=== PATIENT | female | born 1990 | race Caucasian/White ===

== ENCOUNTER 2017-08-05 01:38 | Outpatient (CLI) | payer BC ==
[~2017-08-05] VITALS: Ht 154.9 cm; Wt 98.7 kg
[2017-08-05 01:58] VITALS: BP 131/68
[2017-08-05 01:59] LABS: BILIRUBIN,URINE NEGATIVE (NEGATIVE); KETONES,URINE NEGATIVE (NEGATIVE); LEUKOCYTE ESTERASE ,URINE 2+ (NEGATIVE); NITRITE,URINE NEGATIVE (NEGATIVE); PH,URINE 7 (5-9); PROTEIN,URINE 1+ (NEGATIVE); UROBILINOGEN,URINE NORMAL (NORMAL)
[2017-08-05] MEDS ORDERED: PREN-37 PO (02:06)
[2017-08-05] MEDS ORDERED: CETI10TA20 PO (02:07)
[2017-08-05 02:17] LABS: SQUAMOUS EPITHELIAL CELL,UR 0-2 /HPF
--- NOTE | 2017-08-10 16:23 | Physician Query-Final Dx ---
CHAITANYA DILL 08/10/17 1623: Clinic Account Progress/Dx Physician Query: Please give diagnosis Date of Service Aug 05, 2017 at 01:38 KELSY VASQUEZ DO 08/18/17 1525: Clinic Account Progress/Dx DIAGNOSIS: Diagnosis Threatened Labor CHAITANYA DILL Aug 10, 2017 16:23 KELSY VASQUEZ DO Aug 18, 2017 15:25
== END 2017-08-05 02:56 | disposition home or self-care (01) ==
LOC: WSo 01:38 → LDRP 01:39 → WSo 02:56
PROVIDERS: ATTEND Family Medicine
DX: O47.02 False labor before 37 completed weeks of gestation, second trimester (principal); Z3A.21 21 weeks gestation of pregnancy
CPT/HCPCS: 80306; 81000; 87088; 99213